=== PATIENT | female | born 1935 | race Asian ===

== ENCOUNTER 2021-02-22 14:40 | Emergency (ER) | payer BC, SELFPAY ==
--- NOTE | 2021-02-22 17:21 | NUR ---
TRIAGED IN HALLWAY, NEEDS VS
[2021-02-22] MEDS ORDERED: OXYMETAZOLINE HCL 0.05% NASAL SPRAY NS ONE (18:45)
--- NOTE | 2021-02-22 19:00 | NUR ---
ER examining patient in the lobby.
--- NOTE | 2021-02-22 19:05 | NUR ---
nose bleeding stop at this time.
[2021-02-22 19:10] LABS: HEMATOCRIT 33.5 % (36-48); HEMOGLOBIN 11.2 g/dL (12.0-16.0); MEAN CORPUSCULAR HEMOGLOBIN 30 pg (27-31); MEAN CORPUSCULAR HGB CONC 33 % (32-36); MEAN CORPUSCULAR VOLUME 90 fL (79.0-98.0); PLATELET COUNT (AUTO) 189 K/uL (130-430); RED BLOOD CELL COUNT(AUTO) 3.71 MIL/uL (4.2-6.2); RED CELL DISTRIBUTION WIDTH 13.4 % (9.0-15.0)
[2021-02-22] MEDS ORDERED: BENZ100C92 PO (20:14)
--- NOTE | 2021-02-22 20:24 | NUR ---
Patient daugther given written and verbal discharge instructions and verbalizes understanding. ER MD discussed with patient the results and treatment provided. Patient in stable condition. ID arm band removed. IV catheter removed intact and dressing applied, no active bleeding. Rx of Bezonatate 100mg po given. Patient educated on pain management and to follow up with PMD. Pain Scale 0/10. Opportunity for questions provided and answered. Medication side effect fact sheet provided.
[2021-02-22 20:29] VITALS: BP_SYST 146
== END 2021-02-22 20:29 | disposition home or self-care (01) ==
LOC: SED 14:40
DX: R04.0 Epistaxis (principal); Z79.899 Other long term (current) drug therapy
CPT/HCPCS: 36415; 83051; 85014; 85048; 85049-TC; 99283